=== PATIENT | male | born 1945 | race Caucasian/White ===

== ENCOUNTER 2016-08-05 12:29 | Emergency (ER) | payer MEDICARE ==
[2016-08-05 12:56] LABS: BLOOD UREA NITROGEN 21 mg/dL (9-20); CALCIUM 9.8 mg/dL (8.4-10.2); CHLORIDE 98 mmol/L (98-107); EST GLOMERULAR FILTRATION RATE > 60 mL/min; GLUCOSE 128 mg/dL (70-100); MAGNESIUM 1.9 mg/dL (1.6-2.3); POTASSIUM 3.4 mmol/L (3.5-5.1); SODIUM 136 mmol/L (137-145)
[2016-08-05] MEDS ORDERED: ONDANSETRON HCL 4 MG/2 ML VIAL ONE (13:02)
[2016-08-05 13:30] LABS: BASOPHIL# 0.1 X 10^3uL (0.0-0.1); BASOPHILS 1.2 % (0.0-2.0); EOSINOPHILS 0.2 % (0.0-6.0); HEMATOCRIT 47.2 % (42.0-54.0); HEMOGLOBIN 16.6 g/dL (14.0-18.0); LYMPHOCYTES 38.4 % (20.0-40.0); LYMPHOCYTES# 2.8 X 10^3uL (0.8-3.8); MEAN CELL VOLUME 95.8 fL (80.0-100.0); MEAN CORPUS. HGB CONCENTRATION 35.3 g/dL (32.0-36.0); MEAN CORPUSCULAR HEMOGLOBIN 33.8 pg (29.0-35.0); MONOCYTES 8.6 % (2.0-10.0); MONOCYTES# 0.6 X 10^3uL (0.2-1.0); NEUTROPHILS 51.6 % (54.0-75.0); NEUTROPHILS# 3.9 X 10^3uL (2.6-6.7); PLATELET COUNT 149 X 10^3uL (130-440); RED BLOOD COUNT 4.93 X 10^6uL (4.20-6.10); RED CELL DISTRIBUTION WIDTH 11.9 % (11.5-14.5); TROPONIN I < 0.012 ng/mL (0.00-0.034); WHITE BLOOD COUNT 7.4 X 10^3uL (3.9-10.7)
--- NOTE | 2016-08-05 15:22 | ER NURSING DOCUMENTATION ---
Nurse's Notes [facility] Name:Mayito Soto Age:70 yrs Sex:Male :1945 Arrival Date:08/05/2016 Time:12:29 BedTrauma-A Private MD: Diagnosis:Dehydration;Heat Exhaustion Presentation: 08/05 12:36 Transition of care: patient was not received from another setting of care. Notified ED nf Physician of patient's arrival and CC Flip Avalos notified. 12:36 Method Of Arrival: Private Vehicle nf 12:36 Acuity: KEITH 2 nf 12:43 Presenting complaint: Patient states: since yesterday - weakness and fatigue and nf dizziness and nausea - worsening; denies chest pain and dyspnea. Triage Assessment: 12:39 General: Appears well nourished, well groomed, Behavior is anxious. Pain: Denies pain. nf 12:44 Neuro: No deficits noted. right sided facial droop, which is chronic for the patient nf since acoustic neuroma in 1997. Cardiovascular: Capillary refill < 3 seconds Rhythm is sinus rhythm. Respiratory: Respiratory effort is even, unlabored, Respiratory pattern is regular, GI: Reports nausea. Historical: - Home Meds: 1. Janumet oral 2. Aspirin Oral 3. Lisinopril Oral 4. hydrochlorothiazide Oral - PMHx: Diabetes - NIDDM; Hypertension; - PSHx: acoustic neuroma 1997; Appendectomy; Cholecysectomy; - Tetanus: Other NA today. - Ebola Screening: : No symptoms or risks identified at this time. . - Immunization history: Pneumococcal vaccine is up to date, Flu Vaccine < 1 year. - Social history: Smoking status: Patient states former smoker of tobacco. Patient uses alcohol but reports only rare drinking. Screenin:41 Infectious Disease Risk None. Abuse screen: Denies threats or abuse. Nutritional nf screening: No deficits noted. Assessment: 12:41 See Triage Assessment done by same RN. nf 12:57 Reassessment: pulse dropping to 84%-87% on room air when resting, oxygen applied and nf Peterson notified. 13:40 Reassessment: re- evaluation by Peterson. nf 14:30 Reassessment: Patient states feeling better. Patient states symptoms have improved. nf 15:00 Reassessment: passed room air challenge with pulse ox 90-92%. nf Vital Signs: 12:40 BP 166 / 96; Pulse 98; Resp 20; Temp 98.1(O); Pulse Ox 98% on R/A; Weight 79.38 kg; nf Height 5 ft. 9 in. (175.26 cm); Pain 0/10; 12:56 Pulse Ox 84% on R/A; nf 13:10 BP 145 / 83; Pulse 86; Resp 12; Pulse Ox 100% on 2 lpm NC; Pain 0/10; nf 14:10 BP 152 / 84; Pulse 82; Resp 12; Pulse Ox 95% 1 lpm ; Pain 0/10; nf 15:10 BP 147 / 81; Pulse 78; Resp 14; Pulse Ox 91% on R/A; Pain 0/10; nf 12:40 Body Mass Index 25.84 (79.38 kg, 175.26 cm) nf Bola Coma Score: 12:41 Eye Response: spontaneous(4). Verbal Response: oriented(5). Motor Response: obeys nf commands(6). Total: 15. ED Course: 12:30 Patient arrived in ED. dp 12:30 EKG done. (by ED staff). Reviewed by Bruno Castelan MD. tg 12:31 Bruno Castelan MD is Attending Physician. jm 12:36 Zulema De Leon RN is Primary Nurse. nf 12:36 Triage completed. nf 12:37 Port Xray Completed. rayshawn 12:39 Inserted peripheral IV: 20 gauge in right in left antecubital area and blood collected. tg 12:41 Arm band placed on Bed in low position Call Light in Reach Gowned Side rails up x2. nf 12:41 Valuables Remains with patient. surveillance monitor on. Pulse ox on. NIBP On - RN nf Monitoring Only. Door closed. Noise minimized. Lights dimmed. Moved to private room. Verbal reassurance given. Warm blanket given. Pillow given. Diet: Patient is NPO. 12:57 Oxygen Oxygen administration via nasal cannula @ 2L/min. nf 13:40 Oxygen Oxygen administration via nasal cannula oxygen decreased to 1L/minute. nf 14:10 EKG attached nf 15:00 Oxygen O2 via room air challenge. nf 15:10 Assisted to bathroom. nf 15:10 [address] Test. nf Administered Medications: 12:52 Drug: NS 0.9% 1000 ml; Route: IV; Rate: bolus; Site: left antecubital; nf 13:44 Follow up: IV Status: Completed infusion; IV Intake: 1000ml nf 12:52 Drug: Zofran 4 mg; Route: IVP; Infused Over: 2 mins; Site: left antecubital; nf 13:41 Follow up: Response: Nausea is decreased nf Point of Care Testing: Blood Glucose: 12:41 Blood Glucose: 121 mg/dL; nf Ranges: Intake: 13:44 IV: 1000ml; Total: 1000ml. nf 15:10 PO: 120ml; Total: 1120ml. nf Output: 15:10 Urine: 1ml (Voided); Total: 1ml. nf Outcome: 15:09 Discharge ordered by . sinan 15:21 Patient left the ED. nf 15:21 Discharged to home ambulatory, with family, declined wheelchair nf 15:21 Condition: improved 15:21 Discharge Assessment: Patient awake, alert and oriented x 3. No cognitive and/or functional deficits noted. Patient verbalized understanding of disposition instructions. 15:21 Discharge instructions given to patient, family, Instructed on discharge instructions, follow up and referral plans. medication usage, Demonstrated understanding of instructions. 15:21 IV D/Ucrly 08/06 10:45 Discharge F/U Call: Unable to reach: non-working number [id number] Signatures: Agustín Wilson RN RN tg Campbell, Sandy, RN RN sc1 Zulema De Leon RN RN nf Meyer, John, MD MD jm Abbott, Ama Burgess
--- NOTE | 2016-08-05 15:22 | ER PHYSICIAN DOCUMENTATION ---
Physician Documentation [facility] Name:Mayito Soto Age:70 yrs Sex:Male :1945 Arrival Date:08/05/2016 Time:12:29 BedTrauma-A Private MD: Bruno Garcia Disposition: 08/05/16 15:09 Discharged to Home/Self Care. Impression: Dehydration, Heat Exhaustion. - Condition is Good. - Discharge Instructions: HEAT EXHAUSTION. - Medical Reconciliation form form. - Follow up: Private Physician; When: As needed; Reason: Continuance of care. - Problem is new. - Symptoms have improved. HPI: 08/05 13:00 This 70 yrs old Male presents to ER via Private Vehicle with complaints of jm Near Syncope. 13:00 The patient has experienced near-syncope, felt dizzy, felt generally weak. Onset: The jm symptom(s)/episode began/occurred today. Duration: This was a single episode, that is still ongoing. Context: Just prior to the episode the patient experienced no apparent symptoms. Associated injury: The patient did not suffer any apparent associated injury. Associated signs and symptoms: Pertinent positives: dizziness, Pertinent negatives: chest pain, shortness of breath. The patient has not experienced similar symptoms in the past. The patient has not recently seen a physician. Pt here for exhaustion. Pt ws in [facility] where there was 120 degree weather. Pt states he was in the car and didn't drink much fluid, so he thinks he is dehydrated. He is very dizzy and shaky. . Historical: - Home Meds: 1. Janumet oral 2. Aspirin Oral 3. Lisinopril Oral 4. hydrochlorothiazide Oral - PMHx: Diabetes - NIDDM; Hypertension; - PSHx: acoustic neuroma 1997; Appendectomy; Cholecysectomy; - Tetanus: Other NA today. - Ebola Screening: : No symptoms or risks identified at this time. . - Immunization history: Pneumococcal vaccine is up to date, Flu Vaccine < 1 year. - Social history: Smoking status: Patient states former smoker of tobacco. Patient uses alcohol but reports only rare drinking. ROS: 13:00 Constitutional: Negative for fever. jm 13:00 Eyes: Negative for injury or acute deformity. 13:00 ENT: Negative for sinus congestion, sinus pain, sore throat. 13:00 Cardiovascular: Negative for chest pain. 13:00 Respiratory: Negative for cough, shortness of breath. 13:00 Abdomen/GI: Negative for nausea, vomiting, diarrhea. 13:00 Back: Negative for injury or acute deformity. 13:00 MS/extremity: Negative for swelling, tenderness. 13:00 Skin: Negative for rash, swelling. 13:00 Neuro: Positive for dizziness, weakness, Negative for numbness, tingling. 13:00 All other systems are negative. Exam: 13:30 Abdomen/GI: Bowel sounds: normal, Palpation: abdomen is soft and non-tender. jm 13:30 Constitutional: The patient appears alert, awake. 13:30 Eyes: Pupils: equal, round, and reactive to light and accomodation, Extraocular movements: intact throughout. 13:30 ENT: Mouth: Oral mucosa: dry, Voice: is normal. 13:30 Cardiovascular: Rate: tachycardic, Rhythm: regular. 13:30 Respiratory: Exam negative for Respirations: normal, Breath sounds: are normal. 13:30 Musculoskeletal/extremity: ROM: intact in all extremities, Weight bearing: able to fully bear weight. 13:30 Skin: Appearance: Color: pink, no rash present. 13:30 Neuro: Mentation: is normal, Memory: is normal. 13:30 Psych: Behavior/mood is pleasant, cooperative, Affect is calm. Vital Signs: 12:40 BP 166 / 96; Pulse 98; Resp 20; Temp 98.1(O); Pulse Ox 98% on R/A; Weight 79.38 kg; nf Height 5 ft. 9 in. (175.26 cm); Pain 0/10; 12:56 Pulse Ox 84% on R/A; nf 13:10 BP 145 / 83; Pulse 86; Resp 12; Pulse Ox 100% on 2 lpm NC; Pain 0/10; nf 14:10 BP 152 / 84; Pulse 82; Resp 12; Pulse Ox 95% 1 lpm ; Pain 0/10; nf 15:10 BP 147 / 81; Pulse 78; Resp 14; Pulse Ox 91% on R/A; Pain 0/10; nf 12:40 Body Mass Index 25.84 (79.38 kg, 175.26 cm) nf Bola Coma Score: 12:41 Eye Response: spontaneous(4). Verbal Response: oriented(5). Motor Response: obeys nf commands(6). Total: 15. MDM: 12:31 Patient medically screened. 14:00 Differential Diagnosis: emotional response, idiopathic syncope, dehydration. Neurological re-evaluation: normal neurological exam including cranial nerves, orientation, mentation, motor and sensory exam, cerebellar testing, GCS normal, and normal gait. Data reviewed: vital signs, nurses notes, old medical records, lab test result(s), EKG, radiologic studies, and as a result, I will discharge patient. Test interpretation: by ED physician or midlevel provider: plain radiologic studies, ECG. Counseling: I had a detailed discussion with the patient and/or guardian regarding: the historical points, exam findings, and any diagnostic results supporting the discharge/admit diagnosis, lab results, radiology results, the need for outpatient follow up, with the patient's primary care provider. ECG:. Response to treatment: the patient's symptoms have markedly improved after treatment. ED course: Pt most likely dehydrated. Pt given IVF and zofran and felt much better at time of DC. . 14:10 EKG attached 08/05 13:31 Order name: BASIC METABOLIC PANEL; Complete Time: 14:44 EDMN 08/05 13:31 Order name: MAGNESIUM; Complete Time: 14:44 [facility] [place] 08/05 13:31 Order name: TROPONIN I; Complete Time: 14:44 [facility] [place] 08/05 13:31 Order name: CBC AUTO DIF, MDIF/RMOR IF IND; Complete Time: 14:44 EDMN 08/05 14:29 Order name: BNP,NT-PRO; Complete Time: 14:44 [facility] [place] 08/05 18:46 Order name: CHEST; SINGLE [place]IEW [id number] [facility] [place] 08/05 12:35 Order name: 12-lead EKG; Complete Time: 12:38 08/05 12:35 Order name: Iv Saline Lock; Complete Time: 12:38 08/05 12:35 Order name: Place Patient On Monitor; Complete Time: 12:38 08/05 12:35 Order name: Pulse Ox Continuous; Complete Time: 12:38 08/05 12:57 Order name: Oxygen; Complete Time: 12:57 EC:00 Rhythm is regular with Right bundle branch block. QRS interval is normal. QT interval jm is normal. No Q waves. T waves are Normal. No ST changes noted. Dispensed Medications: 12:52 Drug: NS 0.9% 1000 ml; Route: IV; Rate: bolus; Site: left antecubital; nf 13:44 Follow up: IV Status: Completed infusion; IV Intake: 1000ml nf 12:52 Drug: Zofran 4 mg; Route: IVP; Infused Over: 2 mins; Site: left antecubital; nf 13:41 Follow up: Response: Nausea is decreased nf Point of Care Testing: Blood Glucose: 12:41 Blood Glucose: 121 mg/dL; nf Ranges: Critical Glucose Levels:Adult <50 mg/dl or >400 mg/dl <40 mg/dl or >180 mg/dl Signatures: Agustín Wilson RN RN tg Zulema De Leon RN RN nf Bruno Castelan MD MD
--- NOTE | 2016-08-05 17:50 | RADIOLOGY REPORT ---
A limited single portable view of the chest demonstrates the heart and vessels to be unremarkable. The lung rene are clear. IMPRESSION: Unremarkable limited single portable view of the chest. MTDD
== END 2016-08-05 15:22 | disposition home or self-care (01) ==
LOC: ER 12:29
DX: E86.0 Dehydration (principal); T67.3XXA Heat exhaustion, anhydrotic, initial encounter; R42 Dizziness and giddiness; R53.1 Weakness; R55 Syncope and collapse; I45.10 Unspecified right bundle-branch block; I10 Essential (primary) hypertension; E11.9 Type 2 diabetes mellitus without complications; Z79.899 Other long term (current) drug therapy; Z79.82 Long term (current) use of aspirin
CPT/HCPCS: 71010; 80048; 83735; 83880; 84484; 85025; 93005; 96361; 96374; 99285; J2405